=== PATIENT | male | born 1995 | race Caucasian/White ===

== ENCOUNTER 2023-11-07 17:58 | Emergency (ER) | payer MEDICAID ==
[~2023-11-07] VITALS: Ht 177.8 cm; Wt 97.5 kg
[2023-11-07] MEDS ORDERED: AMLO2.5T4 PO (19:42)
[2023-11-07] MEDS ORDERED: AMLODIPINE BESYLATE 5 MG TABLET ONE (19:42)
[2023-11-07] MEDS: AMLODIPINE BESYLATE 5 MG TABLET PO ONE (19:46)
[2023-11-07 19:53] VITALS: BP 156/99; TEMP 98.3; O2SAT 99
== END 2023-11-07 19:53 | disposition home or self-care (01) ==
LOC: ER 18:15
DX: I10 Essential (primary) hypertension (principal)

== ENCOUNTER 2023-11-15 16:31 | Emergency (ER) | payer MEDICAID ==
[~2023-11-15] VITALS: Ht 177.8 cm; Wt 95.7 kg
[~2023-11-15 16:31] MED LIST: AMLO2.5T4 PO
[2023-11-15 16:42] VITALS: BP 128/62; TEMP 98.2
[2023-11-15] MEDS ORDERED: PENI500T PO (16:58)
[2023-11-15 17:22] VITALS: O2SAT 100
== END 2023-11-15 17:23 | disposition home or self-care (01) ==
LOC: ER 16:34
DX: J02.0 Streptococcal pharyngitis (principal); Z79.899 Other long term (current) drug therapy

== ENCOUNTER 2024-12-16 15:46 | Emergency (ER) | payer BC, MEDICAID ==
[~2024-12-16] VITALS: Ht 177.8 cm; Wt 97.5 kg
[~2024-12-16 15:46] MED LIST changes: +PENI500T PO
[2024-12-16 15:57] VITALS: TEMP 98
[2024-12-16] MEDS ORDERED: IBUPROFEN 400 MG TABLET ONE (16:09)
[2024-12-16] MEDS: IBUPROFEN 400 MG TABLET PO ONE (16:11)
[2024-12-16 17:21] VITALS: BP 160/99; O2SAT 97
== END 2024-12-16 17:20 | disposition home or self-care (01) ==
LOC: ER 15:52
DX: M25.572 Pain in left ankle and joints of left foot (principal); R22.42 Localized swelling, mass and lump, left lower limb
CPT/HCPCS: 73610-TC